=== PATIENT | male | born 1960 | race Caucasian/White ===

== ENCOUNTER → 2020-11-26 | Day surgery (SDC) | payer OTHER ==
[~2020-11-26] MED LIST: ASPIRIN81 MG PO; BIOTIN2500 MCG PO; CIPRO500 MG PO; CLARITIN10 M2 PO; CO Q-10100 MG PO; CRESTOR20 MG PO; DAILY MULTIPLE1 EAC1 PO; FLOMAX0.4 MG PO; GORDO-VITE A2400 GM PO; NORVASC5 MG PO; OMEGA-3 FISH1000 MG PO; VITAMIN D21250 MCG PO
== END | disposition home or self-care (01) ==
LOC: OR 11:08
PROVIDERS: Urology
PROC: 0VB03ZX Excision of Prostate, Percutaneous Approach, Diagnostic (ICD-10-PCS; principal; 2020-11-26 12:30)
DX: C61 Malignant neoplasm of prostate (principal); Z88.0 Allergy status to penicillin
CPT/HCPCS: J7040; J7120

== ENCOUNTER → 2021-01-25 | Outpatient (CLI) | payer OTHER | LOC: NM 08:02 | DX: C61 Malignant neoplasm of prostate (principal) | CPT/HCPCS: 36415; 78306; 82565; A9503; Q9967 ==

== ENCOUNTER → 2022-06-06 | Outpatient (CLI) | payer OTHER | LOC: ECHO 11:17 | DX: I47.2 Ventricular tachycardia (principal); I07.1 Rheumatic tricuspid insufficiency | CPT/HCPCS: ECHO; 93306 ==